=== PATIENT | male | born 1970 | race Caucasian/White ===

== ENCOUNTER 2017-11-22 08:28 | Emergency (ER) | payer OTHER ==
[~2017-11-22] VITALS: Ht 182.9 cm; Wt 240.4 kg
[2017-11-22 09:37] LABS: BASOPHILS ABSOLUTE AUTO 0.05 K/mm3 (0.00-0.23); BASOPHILS PERCENT AUTO 1 % (0-2); EOSINOPHILS ABSOLUTE AUTO 0.29 K/mm3 (0.00-0.68); EOSINOPHILS PERCENT AUTO 3 % (0-6); Hematocrit 34.5 % (37.0-53.0); Hemoglobin 10.7 g/dL (13.5-17.5); IMMATURE GRAN ABSOLUTE AUTO 0.05 K/mm3 (0.00-0.10); IMMATURE GRAN PERCENT AUTO 1 % (0-1); LYMPHOCYTES ABSOLUTE AUTO 2.86 K/mm3 (0.84-5.20); LYMPHOCYTES PERCENT AUTO 26 % (21-46); MONOCYTES PERCENT AUTO 7 % (4-13); Mean Corpuscular HGB 26.9 pg (26.0-34.0); Mean Corpuscular Volume 87 fL (80-100); Mean Platelet Volume 9.9 fL (9.1-12.4); NEUTROPHILS ABSOLUTE AUTO 6.98 K/mm3 (1.96-9.15); NEUTROPHILS PERCENT AUTO 63 % (41-73); Platelet Count 344 K/mm3 (150-400); RDW Coefficient Variation 13.5 % (11.7-14.2); RDW Standard Deviation 42.5 fL (35.1-46.3); Red Blood Cell Count 3.98 M/mm3 (4.30-5.90); White Blood Cell Count 11.03 K/mm3 (4.00-11.30)
[2017-11-22 10:04] LABS: Anion Gap 7 mmol/L (6-16); Blood Urea Nitrogen 9 mg/dL (8-24); Bun/Creatinine Ratio 14.9 (12.0-20.0); CO2, Blood 24 mmol/L (21-32); Calcium, Blood 8.3 mg/dL (8.5-10.1); Chloride, Blood 106 mmol/L (98-108); Glomerular Filtration Rate >60 (60-); Glucose, Blood 119 mg/dL (70-99); Potassium, Blood 3.8 mmol/L (3.5-5.5); Sodium, Blood 137 mmol/L (136-145); Troponin I <0.015 ng/mL (0.000-0.040)
[2017-11-22 10:19] LABS: International Normalized Ratio 1.03; Prothrombin Time Results 10.7 Sec (9.7-11.5)
[2017-11-22] MEDS ORDERED: FURO80 PO (10:34)
== END 2017-11-22 11:12 | disposition home or self-care (01) ==
LOC: ER 08:28
PROVIDERS: Emergency Medicine
DX: R06.00 Dyspnea, unspecified (principal); R60.0 Localized edema; E66.01 Morbid (severe) obesity due to excess calories; I50.9 Heart failure, unspecified; Z68.45 Body mass index [BMI] 70 or greater, adult
CPT/HCPCS: 71046; 80048; 83880; 84484; 85025; 85610; 93005; 93010; 96374; 99283; J1940

== ENCOUNTER 2020-04-09 17:07 | Emergency (ER) | payer OTHER ==
[~2020-04-09] VITALS: Ht 182.9 cm; Wt 182.3 kg
[~2020-04-09 17:07] MED LIST: FURO80 PO
[2020-04-09 18:01] LABS: BASOPHILS ABSOLUTE AUTO 0.09 K/mm3 (0.00-0.23); BASOPHILS PERCENT AUTO 1 % (0-2); EOSINOPHILS ABSOLUTE AUTO 0.14 K/mm3 (0.00-0.68); EOSINOPHILS PERCENT AUTO 2 % (0-6); Hematocrit 46.8 % (37.0-53.0); Hemoglobin 14.2 g/dL (13.5-17.5); IMMATURE GRAN ABSOLUTE AUTO 0.03 K/mm3 (0.00-0.10); IMMATURE GRAN PERCENT AUTO 0 % (0-1); LYMPHOCYTES ABSOLUTE AUTO 3.05 K/mm3 (0.84-5.20); LYMPHOCYTES PERCENT AUTO 33 % (21-46); MONOCYTES ABSOLUTE AUTO 0.75 K/mm3 (0.16-1.47); MONOCYTES PERCENT AUTO 8 % (4-13); Mean Corpuscular HGB 26.6 pg (26.0-34.0); Mean Corpuscular HGB Conc 30.3 g/dL (31.5-36.5); Mean Corpuscular Volume 88 fL (80-100); Mean Platelet Volume 10.6 fL (9.1-12.4); NEUTROPHILS ABSOLUTE AUTO 5.26 K/mm3 (1.96-9.15); NEUTROPHILS PERCENT AUTO 57 % (41-73); Platelet Count 308 K/mm3 (150-400); RDW Coefficient Variation 15.1 % (11.7-14.2); RDW Standard Deviation 47.8 fL (35.1-46.3); Red Blood Cell Count 5.34 M/mm3 (4.30-5.90); White Blood Cell Count 9.32 K/mm3 (4.00-11.30)
[2020-04-09] MEDS ORDERED: POTA10T PO (18:13)
[2020-04-09 18:20] LABS: Alanine Aminotransfer (ALT/SGP 86 U/L (12-78); Albumin, Blood 3.6 g/dL (3.4-5.0); Albumin/Globulin Ratio 0.8 (0.8-1.8); Alk Phos 62 U/L (50-136); Anion Gap 8 mmol/L (6-16); Aspartate Aminotrans (AST/SGOT 70 U/L (12-37); Bilirubin, Total 1.1 mg/dL (0.1-1.0); Blood Urea Nitrogen 24 mg/dL (8-24); Bun/Creatinine Ratio 20.2 (12.0-20.0); CO2, Blood 25 mmol/L (21-32); Calcium, Blood 8.8 mg/dL (8.5-10.1); Chloride, Blood 107 mmol/L (98-108); Creatinine, Blood 1.19 mg/dL (0.60-1.20); Globulin, Blood 4.5 g/dL (2.2-4.0); Glomerular Filtration Rate >60 (60-); Glucose, Blood 106 mg/dL (70-99); Potassium, Blood 4.3 mmol/L (3.5-5.5); Sodium, Blood 140 mmol/L (136-145); Total Protein, Blood 8.1 g/dL (6.4-8.2); Troponin I 0.026 ng/mL (0.000-0.040)
[2020-04-09] MEDS ORDERED: Furosemide40 MG PO (21:55)
== END 2020-04-09 22:08 | disposition home or self-care (01) ==
LOC: ER 17:07
PROVIDERS: Emergency Medicine
DX: I50.9 Heart failure, unspecified (principal); R06.00 Dyspnea, unspecified; E66.01 Morbid (severe) obesity due to excess calories; Z68.43 Body mass index [BMI] 50.0-59.9, adult; Z79.899 Other long term (current) drug therapy
CPT/HCPCS: 36415; 71046; 71260; 80053; 83880; 84484; 85025; 85379; 93005; 93010; 96374-59; 99285-25; J1940; Q9967

== ENCOUNTER 2020-07-12 06:49 | Day surgery (SDC) | payer OTHER ==
[~2020-07-12] VITALS: Ht 182.9 cm; Wt 162.0 kg
[~2020-07-12 06:49] MED LIST changes: +ASPI81CH PO; +ESCI20 PO; +FURO40 PO; +Furosemide40 MG PO; +INDO50 PO; +POTA10T PO; +PRINIVIL5 M1 PO; +SPIR25 PO; +TORSE20 PO; +TRAZ50 PO
[2020-07-12] MEDS ORDERED: ENTRESTO 24 MG1 EACH PO (07:50)
[2020-07-12] MEDS ORDERED: CARV3.125 PO (07:50)
== END 2020-07-12 11:45 | disposition home or self-care (01) ==
LOC: MHTC 06:49
DX: I27.22 Pulmonary hypertension due to left heart disease (principal); I11.0 Hypertensive heart disease with heart failure; I50.9 Heart failure, unspecified; I42.8 Other cardiomyopathies; E66.9 Obesity, unspecified; E78.00 Pure hypercholesterolemia, unspecified; E78.5 Hyperlipidemia, unspecified; G47.33 Obstructive sleep apnea (adult) (pediatric); E66.01 Morbid (severe) obesity due to excess calories; Z68.42 Body mass index [BMI] 45.0-49.9, adult; Z79.82 Long term (current) use of aspirin; Z79.899 Other long term (current) drug therapy
CPT/HCPCS: 85347; 93460; 99152; C1769; C1894; J1644; J2250; J3010; J7030; J7040; Q9967

== ENCOUNTER 2021-09-30 19:08 | Emergency (ER) | payer OTHER ==
[~2021-09-30] VITALS: Ht 182.9 cm; Wt 166.9 kg
[~2021-09-30 19:08] MED LIST changes: +CARV3.125 PO; +ENTRESTO 24 MG1 EACH PO
[2021-09-30 19:49] LABS: BASOPHILS ABSOLUTE AUTO 0.08 K/mm3 (0.00-0.23); BASOPHILS PERCENT AUTO 1 % (0-2); EOSINOPHILS ABSOLUTE AUTO 0.27 K/mm3 (0.00-0.68); EOSINOPHILS PERCENT AUTO 3 % (0-6); Hematocrit 40.3 % (37.0-53.0); Hemoglobin 13.2 g/dL (13.5-17.5); IMMATURE GRAN ABSOLUTE AUTO 0.02 K/mm3 (0.00-0.10); IMMATURE GRAN PERCENT AUTO 0 % (0-1); LYMPHOCYTES ABSOLUTE AUTO 3.19 K/mm3 (0.84-5.20); LYMPHOCYTES PERCENT AUTO 30 % (21-46); MONOCYTES PERCENT AUTO 7 % (4-13); Mean Corpuscular HGB 28.9 pg (26.0-34.0); Mean Corpuscular HGB Conc 32.8 g/dL (31.5-36.5); Mean Corpuscular Volume 88 fL (80-100); Mean Platelet Volume 10.4 fL (9.1-12.4); NEUTROPHILS ABSOLUTE AUTO 6.42 K/mm3 (1.96-9.15); NEUTROPHILS PERCENT AUTO 60 % (41-73); Platelet Count 298 K/mm3 (150-400); RDW Coefficient Variation 12.6 % (11.7-14.2); RDW Standard Deviation 40.9 fL (35.1-46.3); Red Blood Cell Count 4.57 M/mm3 (4.30-5.90); White Blood Cell Count 10.68 K/mm3 (4.00-11.30)
[2021-09-30 20:16] LABS: Alanine Aminotransfer (ALT/SGP 22 U/L (12-78); Albumin, Blood 3.5 g/dL (3.4-5.0); Albumin/Globulin Ratio 0.9 (0.8-1.8); Alk Phos 81 U/L (50-136); Anion Gap 6 mmol/L (6-16); Aspartate Aminotrans (AST/SGOT 35 U/L (12-37); Bilirubin, Total 0.3 mg/dL (0.1-1.0); Blood Urea Nitrogen 18 mg/dL (8-24); Bun/Creatinine Ratio 23.3 (12.0-20.0); CO2, Blood 29 mmol/L (21-32); Calcium, Blood 8.7 mg/dL (8.5-10.1); Chloride, Blood 105 mmol/L (98-108); Creatinine, Blood 0.77 mg/dL (0.60-1.20); Globulin, Blood 3.9 g/dL (2.2-4.0); Glomerular Filtration Rate >60 (60-); Glucose, Blood 137 mg/dL (70-99); Potassium, Blood 4.2 mmol/L (3.5-5.5); Sodium, Blood 140 mmol/L (136-145); Total Protein, Blood 7.4 g/dL (6.4-8.2); Troponin I <0.015 ng/mL (0.000-0.040)
== END 2021-09-30 21:37 | disposition home or self-care (01) ==
LOC: ER 19:08
PROVIDERS: Physician Assistant
DX: R00.1 Bradycardia, unspecified (principal); I50.9 Heart failure, unspecified; Z79.899 Other long term (current) drug therapy; Z79.82 Long term (current) use of aspirin
CPT/HCPCS: 36415; 71045; 80053; 83880; 84484; 85025; 93005; 93010; 99285-25

== ENCOUNTER 2022-04-03 19:57 | Emergency (ER) | payer OTHER ==
[~2022-04-03] VITALS: Ht 182.9 cm; Wt 168.7 kg
[2022-04-03] MEDS ORDERED: ALLO100 PO (20:19)
== END 2022-04-03 20:35 | disposition home or self-care (01) ==
LOC: ER 19:57
DX: U07.1 COVID-19 (principal); I50.9 Heart failure, unspecified; Z79.82 Long term (current) use of aspirin; Z79.899 Other long term (current) drug therapy
CPT/HCPCS: 99283

== ENCOUNTER → 2022-08-06 | Outpatient (CLI) | payer OTHER ==
[~2022-08-06] MED LIST changes: +ALLO100 PO
== END | disposition home or self-care (01) ==
LOC: LAB SHORT 15:56 → LAB 15:56
DX: T14.8XXA Other injury of unspecified body region, initial encounter (principal)
CPT/HCPCS: 87070; 87205

== ENCOUNTER 2022-08-07 02:37 | Day surgery (SDC) | payer OTHER | END 2022-08-07 23:07 | disposition home or self-care (01) | LOC: WOUND 02:37 | DX: L97.222 Non-pressure chronic ulcer of left calf with fat layer exposed (principal); L97.221 Non-pressure chronic ulcer of left calf limited to breakdown of skin; E66.9 Obesity, unspecified; J45.909 Unspecified asthma, uncomplicated; I11.0 Hypertensive heart disease with heart failure; I50.9 Heart failure, unspecified; Z89.512 Acquired absence of left leg below knee; Z68.42 Body mass index [BMI] 45.0-49.9, adult | CPT/HCPCS: G0463 ==

== ENCOUNTER 2022-08-14 01:50 | Day surgery (SDC) | payer OTHER | END 2022-08-14 23:12 | disposition home or self-care (01) | LOC: WOUND 01:50 | DX: L97.222 Non-pressure chronic ulcer of left calf with fat layer exposed (principal); L97.221 Non-pressure chronic ulcer of left calf limited to breakdown of skin; Z89.512 Acquired absence of left leg below knee; E66.9 Obesity, unspecified | CPT/HCPCS: A9270 ==

== ENCOUNTER 2022-08-21 03:08 | Day surgery (SDC) | payer OTHER | END 2022-08-21 23:21 | disposition home or self-care (01) | LOC: WOUND | DX: L97.222 Non-pressure chronic ulcer of left calf with fat layer exposed (principal); E66.9 Obesity, unspecified; Z89.512 Acquired absence of left leg below knee; Z68.42 Body mass index [BMI] 45.0-49.9, adult | CPT/HCPCS: A9270 ==

== ENCOUNTER 2022-08-28 04:19 | Day surgery (SDC) | payer OTHER | END 2022-08-28 23:17 | disposition home or self-care (01) | LOC: WOUND 04:19 | DX: L97.826 Non-pressure chronic ulcer of other part of left lower leg with bone involvement without evidence of necrosis (principal); E66.9 Obesity, unspecified; L03.116 Cellulitis of left lower limb; T87.81 Dehiscence of amputation stump; Y83.5 Amputation of limb(s) as the cause of abnormal reaction of the patient, or of later complication, without mention of misadventure at the time of the procedure; Z68.42 Body mass index [BMI] 45.0-49.9, adult; Z89.512 Acquired absence of left leg below knee | CPT/HCPCS: A9270; G0463 ==

== ENCOUNTER 2022-09-04 08:00 | Day surgery (SDC) | payer OTHER | END 2022-09-04 23:59 | disposition home or self-care (01) | LOC: WOUND 08:00 | DX: T81.32XA Disruption of internal operation (surgical) wound, not elsewhere classified, initial encounter (principal); L97.222 Non-pressure chronic ulcer of left calf with fat layer exposed; Z89.512 Acquired absence of left leg below knee; L97.221 Non-pressure chronic ulcer of left calf limited to breakdown of skin; L03.116 Cellulitis of left lower limb; E66.9 Obesity, unspecified | CPT/HCPCS: A9270; G0463 ==

== ENCOUNTER 2022-09-11 03:23 | Day surgery (SDC) | payer OTHER | END 2022-09-11 22:42 | disposition home or self-care (01) | LOC: WOUND 03:23 | DX: L97.222 Non-pressure chronic ulcer of left calf with fat layer exposed (principal); L97.221 Non-pressure chronic ulcer of left calf limited to breakdown of skin; L03.116 Cellulitis of left lower limb; E66.9 Obesity, unspecified; Z89.512 Acquired absence of left leg below knee; Z68.42 Body mass index [BMI] 45.0-49.9, adult | CPT/HCPCS: A9270; G0463 ==

== ENCOUNTER 2022-09-18 00:40 | Day surgery (SDC) | payer OTHER | END 2022-09-18 22:57 | disposition home or self-care (01) | LOC: WOUND 00:40 | DX: T87.81 Dehiscence of amputation stump (principal); T87.44 Infection of amputation stump, left lower extremity; Y84.8 Other medical procedures as the cause of abnormal reaction of the patient, or of later complication, without mention of misadventure at the time of the procedure; Z89.512 Acquired absence of left leg below knee; E66.9 Obesity, unspecified | CPT/HCPCS: 87070; 87075; 87076; 87205; A9270; G0463 ==

== ENCOUNTER 2022-09-18 14:27 | Emergency (ER) | payer OTHER ==
[~2022-09-18] VITALS: Ht 182.9 cm; Wt 158.8 kg
[2022-09-18 15:17] LABS: BASOPHILS ABSOLUTE AUTO 0.04 K/mm3 (0.00-0.23); BASOPHILS PERCENT AUTO 0 % (0-2); EOSINOPHILS ABSOLUTE AUTO 0.14 K/mm3 (0.00-0.68); EOSINOPHILS PERCENT AUTO 1 % (0-6); Hematocrit 38.2 % (37.0-53.0); Hemoglobin 12.1 g/dL (13.5-17.5); IMMATURE GRAN ABSOLUTE AUTO 0.02 K/mm3 (0.00-0.10); IMMATURE GRAN PERCENT AUTO 0 % (0-1); LYMPHOCYTES ABSOLUTE AUTO 2.01 K/mm3 (0.84-5.20); LYMPHOCYTES PERCENT AUTO 21 % (21-46); MONOCYTES ABSOLUTE AUTO 0.81 K/mm3 (0.16-1.47); MONOCYTES PERCENT AUTO 8 % (4-13); Mean Corpuscular HGB 26.1 pg (26.0-34.0); Mean Corpuscular HGB Conc 31.7 g/dL (31.5-36.5); Mean Corpuscular Volume 83 fL (80-100); Mean Platelet Volume 10.3 fL (9.1-12.4); NEUTROPHILS ABSOLUTE AUTO 6.74 K/mm3 (1.96-9.15); NEUTROPHILS PERCENT AUTO 69 % (41-73); Platelet Count 383 K/mm3 (150-400); RDW Coefficient Variation 13.2 % (11.7-14.2); RDW Standard Deviation 39.8 fL (35.1-46.3); Red Blood Cell Count 4.63 M/mm3 (4.30-5.90); White Blood Cell Count 9.76 K/mm3 (4.00-11.30)
[2022-09-18 15:36] LABS: C-REACTIVE PROTEIN, EXT RANGE 5.56 mg/dL (0.000-0.300)
[2022-09-18 15:38] LABS: Albumin, Blood 3.3 g/dL (3.4-5.0); Albumin/Globulin Ratio 0.7 (0.8-1.8); Bilirubin, Total 0.1 mg/dL (0.1-1.0); Bun/Creatinine Ratio 19.3 (12.0-20.0); Calcium, Blood 9.1 mg/dL (8.5-10.1); Creatinine, Blood 0.83 mg/dL (0.60-1.20); Globulin, Blood 4.7 g/dL (2.2-4.0); Potassium, Blood 3.7 mmol/L (3.5-5.5)
== END 2022-09-18 18:05 | disposition home or self-care (01) ==
LOC: ER 14:27
PROVIDERS: Physician Assistant
DX: T87.44 Infection of amputation stump, left lower extremity (principal); I50.9 Heart failure, unspecified; Y83.5 Amputation of limb(s) as the cause of abnormal reaction of the patient, or of later complication, without mention of misadventure at the time of the procedure; Z79.899 Other long term (current) drug therapy; Z79.82 Long term (current) use of aspirin
CPT/HCPCS: 36415; 73560-LT; 80053; 85025; 86140; J0696

== ENCOUNTER 2022-09-19 11:20 | Day surgery (SDC) | payer OTHER | END 2022-09-19 14:40 | disposition home or self-care (01) | LOC: ATC 11:20 | DX: T87.44 Infection of amputation stump, left lower extremity (principal); L08.9 Local infection of the skin and subcutaneous tissue, unspecified; Z89.512 Acquired absence of left leg below knee | CPT/HCPCS: 96374; J0696 ==

== ENCOUNTER 2022-09-20 03:33 | Day surgery (SDC) | payer OTHER ==
--- NOTE | 2022-09-20 15:39 | NUR ---
ATTEMPTED A POWERGLIDE INSERTION WITH 20 G 10 CM TO SILVANO WHICH WAS UNSUCCESSFUL. [address] POWERGLIDE MADE TODAY. PT REPORTS HE WILL DRINK WATER AND RETURN TOMORROW FOR CONTINUED ANTIBIOTICS.
== END 2022-09-20 15:21 | disposition home or self-care (01) ==
LOC: ATC 03:33
DX: T87.44 Infection of amputation stump, left lower extremity (principal); L08.9 Local infection of the skin and subcutaneous tissue, unspecified; I10 Essential (primary) hypertension
CPT/HCPCS: 96374; C1751; J0696

== ENCOUNTER 2022-09-21 02:24 | Day surgery (SDC) | payer OTHER ==
--- NOTE | 2022-09-27 07:40 | NUR ---
LATE EMAR ENTRY. [employer] DID NOT SAVE ADMINISTRATION DATA FOR PATIENT ROCEPHIN ON 09/21/22. IV PUSH ROCEPHIN ADMINISTERED 09/21/22 @ 1440.
== END 2022-09-21 14:43 | disposition home or self-care (01) ==
LOC: ATC 02:24
DX: L08.9 Local infection of the skin and subcutaneous tissue, unspecified (principal); I50.9 Heart failure, unspecified; Z79.899 Other long term (current) drug therapy; Z79.82 Long term (current) use of aspirin
CPT/HCPCS: 96374; C1751; J0696

== ENCOUNTER 2022-09-25 01:41 | Day surgery (SDC) | payer OTHER ==
[2022-09-25] MEDS ORDERED: CEFTRIAXON1 GM/50 M1 IV (17:40)
== END 2022-09-25 14:35 | disposition home or self-care (01) ==
LOC: ATC 01:41
DX: T87.44 Infection of amputation stump, left lower extremity (principal); Z89.512 Acquired absence of left leg below knee; Y83.8 Other surgical procedures as the cause of abnormal reaction of the patient, or of later complication, without mention of misadventure at the time of the procedure
CPT/HCPCS: 96374; J0696

== ENCOUNTER 2022-09-25 02:18 | Day surgery (SDC) | payer OTHER ==
[2022-09-25] MEDS ORDERED: CEFTRIAXON1 GM/50 M1 IV (17:40)
== END 2022-09-25 14:35 | disposition home or self-care (01) ==
LOC: WOUND 02:18
DX: T87.81 Dehiscence of amputation stump (principal); Y83.8 Other surgical procedures as the cause of abnormal reaction of the patient, or of later complication, without mention of misadventure at the time of the procedure; L97.222 Non-pressure chronic ulcer of left calf with fat layer exposed; Z89.512 Acquired absence of left leg below knee; L97.221 Non-pressure chronic ulcer of left calf limited to breakdown of skin; L03.116 Cellulitis of left lower limb; E66.9 Obesity, unspecified
CPT/HCPCS: A9270

== ENCOUNTER 2022-09-26 06:02 | Day surgery (SDC) | payer OTHER ==
[~2022-09-26 06:02] MED LIST changes: +CEFTRIAXON1 GM/50 M1 IV
== END 2022-09-26 14:38 | disposition home or self-care (01) ==
LOC: ATC 06:02
DX: L08.9 Local infection of the skin and subcutaneous tissue, unspecified (principal); Z89.512 Acquired absence of left leg below knee; I50.9 Heart failure, unspecified
CPT/HCPCS: 96374; J0696

== ENCOUNTER 2022-09-27 01:32 | Day surgery (SDC) | payer OTHER | END 2022-09-27 15:29 | disposition home or self-care (01) | LOC: ATC 01:32 | DX: T87.44 Infection of amputation stump, left lower extremity (principal); Y83.8 Other surgical procedures as the cause of abnormal reaction of the patient, or of later complication, without mention of misadventure at the time of the procedure; Z89.512 Acquired absence of left leg below knee; I50.9 Heart failure, unspecified | CPT/HCPCS: 96374; J0696 ==

== ENCOUNTER 2022-09-28 00:07 | Day surgery (SDC) | payer OTHER ==
[2022-09-29] MEDS ORDERED: ALLO100 PO (16:12)
[2022-09-29] MEDS ORDERED: ASPI81CH PO (16:14)
[2022-09-29] MEDS ORDERED: ESCI20 PO (16:15)
[2022-09-29] MEDS ORDERED: ENTRESTO 24 MG1 EAC2 PO (16:16)
[2022-09-29] MEDS ORDERED: TORS10 PO (16:17)
[2022-09-29] MEDS ORDERED: TRAZ100 PO (16:18)
== END 2022-09-28 14:34 | disposition home or self-care (01) ==
LOC: ATC 00:07
DX: L08.9 Local infection of the skin and subcutaneous tissue, unspecified (principal); T87.89 Other complications of amputation stump; Z99.3 Dependence on wheelchair; I50.9 Heart failure, unspecified
CPT/HCPCS: 96374; J0696

== ENCOUNTER 2022-09-29 00:43 | Day surgery (SDC) | payer OTHER ==
--- NOTE | 2022-09-29 11:20 | NUR ---
PT C/O PAIN IN UPPER L THIGH. PT STS HE WILL GO TO ER TO HAVE EVALUATED.
[2022-09-29] MEDS ORDERED: ALLO100 PO (16:12)
[2022-09-29] MEDS ORDERED: ASPI81CH PO (16:14)
[2022-09-29] MEDS ORDERED: ESCI20 PO (16:15)
[2022-09-29] MEDS ORDERED: ENTRESTO 24 MG1 EAC2 PO (16:16)
[2022-09-29] MEDS ORDERED: TORS10 PO (16:17)
[2022-09-29] MEDS ORDERED: TRAZ100 PO (16:18)
== END 2022-09-29 11:15 | disposition home or self-care (01) ==
LOC: ATC 00:43
DX: L08.9 Local infection of the skin and subcutaneous tissue, unspecified (principal); Z89.519 Acquired absence of unspecified leg below knee
CPT/HCPCS: J0696

== ENCOUNTER 2022-09-29 11:24 | Inpatient (IN) | payer OTHER ==
[~2022-09-29] VITALS: Ht 182.9 cm; Wt 165.5 kg
[2022-09-29 12:55] LABS: BASOPHILS ABSOLUTE AUTO 0.05 K/mm3 (0.00-0.23); BASOPHILS PERCENT AUTO 1 % (0-2); EOSINOPHILS ABSOLUTE AUTO 0.15 K/mm3 (0.00-0.68); EOSINOPHILS PERCENT AUTO 2 % (0-6); Hematocrit 38.5 % (37.0-53.0); Hemoglobin 12.1 g/dL (13.5-17.5); IMMATURE GRAN ABSOLUTE AUTO 0.03 K/mm3 (0.00-0.10); IMMATURE GRAN PERCENT AUTO 0 % (0-1); LYMPHOCYTES ABSOLUTE AUTO 2.02 K/mm3 (0.84-5.20); LYMPHOCYTES PERCENT AUTO 21 % (21-46); MONOCYTES ABSOLUTE AUTO 0.74 K/mm3 (0.16-1.47); MONOCYTES PERCENT AUTO 8 % (4-13); Mean Corpuscular HGB 25.5 pg (26.0-34.0); Mean Corpuscular HGB Conc 31.4 g/dL (31.5-36.5); Mean Corpuscular Volume 81 fL (80-100); Mean Platelet Volume 9.9 fL (9.1-12.4); NEUTROPHILS ABSOLUTE AUTO 6.67 K/mm3 (1.96-9.15); NEUTROPHILS PERCENT AUTO 69 % (41-73); Platelet Count 369 K/mm3 (150-400); RDW Coefficient Variation 13.7 % (11.7-14.2); RDW Standard Deviation 40.2 fL (35.1-46.3); Red Blood Cell Count 4.75 M/mm3 (4.30-5.90); White Blood Cell Count 9.66 K/mm3 (4.00-11.30)
[2022-09-29 13:17] LABS: Albumin, Blood 3.3 g/dL (3.4-5.0); Albumin/Globulin Ratio 0.6 (0.8-1.8); Bilirubin, Total 0.3 mg/dL (0.1-1.0); Bun/Creatinine Ratio 22.3 (12.0-20.0); C-REACTIVE PROTEIN, EXT RANGE 6.43 mg/dL (0.000-0.300); Calcium, Blood 9.2 mg/dL (8.5-10.1); Creatinine, Blood 0.72 mg/dL (0.60-1.20); Globulin, Blood 5.1 g/dL (2.2-4.0); Potassium, Blood 3.6 mmol/L (3.5-5.5); Total Protein, Blood 8.4 g/dL (6.4-8.2)
[2022-09-29] MEDS ORDERED: ALLO100 PO (16:12)
[2022-09-29] MEDS ORDERED: ASPI81CH PO (16:14)
[2022-09-29] MEDS ORDERED: ESCI20 PO (16:15)
[2022-09-29] MEDS ORDERED: ENTRESTO 24 MG1 EAC2 PO (16:16)
[2022-09-29] MEDS ORDERED: TORS10 PO (16:17)
[2022-09-29] MEDS ORDERED: TRAZ100 PO (16:18)
[2022-09-29 17:48] LABS: Influenza A, PCR NEGATIVE (NEGATIVE); Influenza B, PCR NEGATIVE (NEGATIVE); Resp Syncytial Virus, PCR NEGATIVE (NEGATIVE); SARS-Cov-2 (COVID-19) PCR, MMC NEGATIVE (NEGATIVE)
--- NOTE | 2022-09-29 22:55 | NUR ---
NEW ADMIT FROM ED. A&O X4. VSS. PLEASANT AND COOPERATIVE WITH STAFF. 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 DENIES PAIN. RECEIVING SCHEDULED VANCOMYCIN AND CEFEPIME IV. USES URINAL AT NIGHT. WHEEL CHAIR BASELINE AT HOME.
[2022-09-30 06:52] LABS: BASOPHILS ABSOLUTE AUTO 0.04 K/mm3 (0.00-0.23); BASOPHILS PERCENT AUTO 1 % (0-2); EOSINOPHILS ABSOLUTE AUTO 0.21 K/mm3 (0.00-0.68); EOSINOPHILS PERCENT AUTO 3 % (0-6); Hematocrit 34.4 % (37.0-53.0); Hemoglobin 10.6 g/dL (13.5-17.5); IMMATURE GRAN ABSOLUTE AUTO 0.02 K/mm3 (0.00-0.10); IMMATURE GRAN PERCENT AUTO 0 % (0-1); LYMPHOCYTES ABSOLUTE AUTO 1.68 K/mm3 (0.84-5.20); LYMPHOCYTES PERCENT AUTO 24 % (21-46); MONOCYTES ABSOLUTE AUTO 0.67 K/mm3 (0.16-1.47); MONOCYTES PERCENT AUTO 10 % (4-13); Mean Corpuscular HGB 25.5 pg (26.0-34.0); Mean Corpuscular HGB Conc 30.8 g/dL (31.5-36.5); Mean Corpuscular Volume 83 fL (80-100); Mean Platelet Volume 10.1 fL (9.1-12.4); NEUTROPHILS ABSOLUTE AUTO 4.27 K/mm3 (1.96-9.15); NEUTROPHILS PERCENT AUTO 62 % (41-73); Platelet Count 305 K/mm3 (150-400); RDW Coefficient Variation 13.8 % (11.7-14.2); RDW Standard Deviation 41.3 fL (35.1-46.3); Red Blood Cell Count 4.15 M/mm3 (4.30-5.90); White Blood Cell Count 6.89 K/mm3 (4.00-11.30)
[2022-09-30 07:14] LABS: Albumin, Blood 2.6 g/dL (3.4-5.0); Albumin/Globulin Ratio 0.6 (0.8-1.8); Bilirubin, Total 0.3 mg/dL (0.1-1.0); Bun/Creatinine Ratio 16.3 (12.0-20.0); Calcium, Blood 8.6 mg/dL (8.5-10.1); Creatinine, Blood 0.74 mg/dL (0.60-1.20); Globulin, Blood 4.3 g/dL (2.2-4.0); Potassium, Blood 3.4 mmol/L (3.5-5.5); Total Protein, Blood 6.9 g/dL (6.4-8.2)
--- NOTE | 2022-09-30 15:13 | NUR ---
SHIFT SUMMARY PT AWAKE AT START OF SHIFT. SITTING UPRIGHT IN BED WITH VISITORS AT BS. PT IS W/C BOUND AT BASELINE. DR MANUEL IN EARLY TO SEE PT AND ASSESS L BKA. DRSG REMOVED BY DR MANUEL AND PICTURES TAKEN OF INFECTION SITES. NEW ORDERS PLACED. PT TO BE NPO AT IN FOR SX IN AM. PT TO HAVE ABOVE THE KNEE AMPUTATION TO REMOVE INFECTION. DRSG REPLACED. PT USING URINAL IN BED. PT LATER REMOVED NEW DRSG; ADDITIONAL DRSG PLACED X2. PT REQUESTED W/C AT BS IN ORDER TO TX AND GO INTO [facility]. RECEIVING IV ABX'S PER EMAR. DR BURNS IN TO SEE PT THIS AFTERNOON. NEW ORDERS PLACED. PT DENIED FURTHER NEEDS AT THIS TIME. CALL LT IN REACH.
[2022-09-30 18:11] LABS: Vancomycin, Trough 23.3 ug/mL (5.0-10.0)
--- NOTE | 2022-10-01 05:38 | NUR ---
SHIFT SUMMARY PT A&O X 4- PT NPO OF MIDNIGHT FOR AKA SCHEDULED IN AM- SURGEON CALLED AND VERIFIED ORDER FOR NPO AT MIDNIGHT WAS IN AND LET THIS RN KNOW THAT THE PLAN IS FOR 11AM PROCEDURE UNLESS UNFORSEEN EVENTS HAPPEN- PT SAT UP TO SIDE OF BED AND USED URINAL- PT DENIED PAIN IN LEFT UPPER LEG- PT REPORTED REDUCED REDNESS AND IS REPORTS HE IS READY TO GET PROCEDURE BECAUSE THE INFECTION HAS BEEN OUT OF CONTROL- FIRST CHG BATH DONE- POWERGLIDE L AC FLUSHES WITH NO BLOOD RETURN-CALL LIGHT WITHIN REACH
[2022-10-01 06:23] LABS: BASOPHILS ABSOLUTE AUTO 0.05 K/mm3 (0.00-0.23); BASOPHILS PERCENT AUTO 1 % (0-2); EOSINOPHILS ABSOLUTE AUTO 0.26 K/mm3 (0.00-0.68); EOSINOPHILS PERCENT AUTO 4 % (0-6); Hematocrit 34.6 % (37.0-53.0); Hemoglobin 10.7 g/dL (13.5-17.5); IMMATURE GRAN ABSOLUTE AUTO 0.02 K/mm3 (0.00-0.10); IMMATURE GRAN PERCENT AUTO 0 % (0-1); LYMPHOCYTES PERCENT AUTO 28 % (21-46); MONOCYTES ABSOLUTE AUTO 0.68 K/mm3 (0.16-1.47); MONOCYTES PERCENT AUTO 10 % (4-13); Mean Corpuscular HGB 25.5 pg (26.0-34.0); Mean Corpuscular HGB Conc 30.9 g/dL (31.5-36.5); Mean Corpuscular Volume 82 fL (80-100); Mean Platelet Volume 10.5 fL (9.1-12.4); NEUTROPHILS ABSOLUTE AUTO 4.17 K/mm3 (1.96-9.15); NEUTROPHILS PERCENT AUTO 58 % (41-73); Platelet Count 320 K/mm3 (150-400); RDW Coefficient Variation 13.7 % (11.7-14.2); White Blood Cell Count 7.18 K/mm3 (4.00-11.30)
[2022-10-01 06:46] LABS: Calcium, Blood 8.8 mg/dL (8.5-10.1); Creatinine, Blood 0.83 mg/dL (0.60-1.20); Potassium, Blood 3.4 mmol/L (3.5-5.5)
--- NOTE | 2022-10-01 12:35 | NUR ---
PT TO SDS BY BED RECENTLY WITH ASSIST. History, Chart, Medications and Allergies reviewed before start of procedure.Lungs clear T/O to Auscultation. Patient confirms NPO status and agrees with scheduled surgery. Pre-Op teaching done. Pt verbalizes understanding.
--- NOTE | 2022-10-01 13:18 | NUR ---
TOOK PATIENTS BELONGINGS TO ROOM 209, BELONGINGS TO INCLUDE ONE WHEELCHAIR WITH TWO PT ID STICKERS ATTACHED, ONE WALKER WITH ONE ID STICKER ATTACHED, ONE ORANGE BLANKET, ONE REUSABLE GROCERY BAG WITH PERSONAL BELONGINGS IN IT AND IV PUMP.
--- NOTE | 2022-10-01 13:26 | NUR ---
TRANSFER TO DAY SURGERY PT AxOx4. PLEASANT AND COOPERATIVE WITH CARE. PT NPO THIS AM. REQUESTED AM MEDS HELD UNTIL AFTER SURGERY. MEDS SENT WITH OR STAFF UPON TRANSPORT. PT TRANSFERRED TO DAY SURGERY AT APPROX 1220. REPORT GIVEN TO KEENAN GLOVER ON SURGICAL FLOOR PT WILL MOVE TO ROOM 229 FOR RECOVERY. PT DENIED PAIN THIS AM. VITALS REVIEWED. , KRYSTAL IN ROOM DURING TRANSPORT, MADE AWARE OF POST OP RELOCATION. PT WAS SAFELY TRANSPORTED VIA BED BY OR STAFF.
--- NOTE | 2022-10-01 17:30 | NUR ---
ARRIVAL TO ROOM 209 ARRIVED TO THE FLOOR FROM PACU ON HIS BED, REPORTS HIGH LEVEL OF PAIN AND APPEARED TO BE VERY PAINFUL PHYSICALLY, ELEVATED BP 177 SYSTOLIC, GRUNTING, AND IRREGULAR BREATHING. O2 SATS OVER 94%, PO [place] GIVEN ORDERED. SURGEON CONTACTED FOR BREAKTHROUGH IV NARCOTICS. WILL ADMINISTER AND EVALUATE FOR PAIN AND RESPIRATORY STATUS. SURGICAL SITE SLIGHLTY ELEVATED, DRESSING C/D/I, MODERATE SWELLING NOTED T/O LLE. ICE WATER GIVEN AND ABLE TO TOLERATE, PT REQUESTING ZOFRAN BEFORE EATING TONIGHT.
--- NOTE | 2022-10-01 19:40 | NUR ---
SHIFT SUMMARY PT ARRIVED TO THE FLOOR AROUND 1700 (SEE ARRIVAL TO ROOM 209 NOTE), PT PAIN BETTER MANAGED WITH DILAUDED, MUSCLE RELAXER ORDERED FOR MUSCLE SPASMS, PT REPORTED THAT HE USED TO TAKE FLEXERIL FOR RLS WHICH HELPED. NO ACUTE EVENTS THIS SHIFT, CALL LIGHT IN REACH, REPORT GIVEN TO FRANCIE RN.
--- NOTE | 2022-10-02 04:19 | NUR ---
POD1 LEFT AKA. DRESSINGS C/D/I, SENSATION AND CIRCULATION APPEAR TO BE INTACT. STUMP SOCK IN PLACE. VSS. PAIN HAS BEEN DIFFICULT TO CONTROL T/O THE NIGHT. MEDICATED WITH NORCO AND DILAUDID REGULARLY. CALLED THE HOSPITALIST AND OBTAINED ORDER TO INCREASE NORCO 5 TO A 10MG Q4, AND VALIUM FOR MUSCLE SPASMS THE FLEXARIL IS NOT DECREASING MUSCLE SPASMS ENOUGH FOR THE PT. PT SLEPT ON AND OFF T/O THE NIGHT. TOLLERATING PO INTAKE W/O N/V. PASSING GAS REGULARLY. VOIDING W/O DIFFICULTY. POWERGLIDE INFILTRATED AND WAS REMOVEED, PCU CALLED FOR A NEW PLACEMENT. PLAN FOR PT TO CONTINUE ABX THERAPY AFTER LINE PLACEMENT AND WORK WITH PT. THE PATIENT IS CURRENTLY RESTING, IN NO DISTRESS, CALL LIGHT IN REACH.
[2022-10-02 09:20] LABS: BASOPHILS ABSOLUTE AUTO 0.04 K/mm3 (0.00-0.23); BASOPHILS PERCENT AUTO 0 % (0-2); EOSINOPHILS ABSOLUTE AUTO 0.17 K/mm3 (0.00-0.68); EOSINOPHILS PERCENT AUTO 2 % (0-6); Hematocrit 33.8 % (37.0-53.0); Hemoglobin 10.6 g/dL (13.5-17.5); IMMATURE GRAN ABSOLUTE AUTO 0.04 K/mm3 (0.00-0.10); IMMATURE GRAN PERCENT AUTO 0 % (0-1); LYMPHOCYTES ABSOLUTE AUTO 1.37 K/mm3 (0.84-5.20); LYMPHOCYTES PERCENT AUTO 12 % (21-46); MONOCYTES ABSOLUTE AUTO 0.94 K/mm3 (0.16-1.47); MONOCYTES PERCENT AUTO 8 % (4-13); Mean Corpuscular HGB 25.9 pg (26.0-34.0); Mean Corpuscular HGB Conc 31.4 g/dL (31.5-36.5); Mean Corpuscular Volume 82 fL (80-100); NEUTROPHILS ABSOLUTE AUTO 8.57 K/mm3 (1.96-9.15); NEUTROPHILS PERCENT AUTO 77 % (41-73); Platelet Count 319 K/mm3 (150-400); RDW Standard Deviation 41.7 fL (35.1-46.3); White Blood Cell Count 11.13 K/mm3 (4.00-11.30)
[2022-10-02 09:47] LABS: Albumin, Blood 2.8 g/dL (3.4-5.0); Anion Gap 5 mmol/L (6-16); Blood Urea Nitrogen 10 mg/dL (8-24); Bun/Creatinine Ratio 14.3 (12.0-20.0); CO2, Blood 27 mmol/L (21-32); Calcium, Blood 8.2 mg/dL (8.5-10.1); Chloride, Blood 106 mmol/L (98-108); Glomerular Filtration Rate 110 (60-); Glucose, Blood 151 mg/dL (70-99); Phosphorus, Blood 2.9 mg/dL (2.5-4.9); Potassium, Blood 3.8 mmol/L (3.5-5.5); Sodium, Blood 138 mmol/L (136-145)
[2022-10-02 09:48] LABS: Vancomycin, Trough 18.8 ug/mL (5.0-10.0)
--- NOTE | 2022-10-02 18:59 | NUR ---
SHIFT SUMMARY POD1 L AKA, A/O X4, VSS, TOLERATING PO, PAIN MANAGEMENT SIGNIFICANTLY IMPROVED T/O THE SHIFT WITH A DECREASE IN THE AMOUNT OF IV NARCOTICS NEEDED, DID WELL WITH PHYSICAL THERAPY TODAY BEING ABLE TO STAND AT THE BEDSIDE WITH WALKER/GB. NO BM WITH SHIFT, VOIDING WELL. NO ACUTE EVENTS THIS SHIFT, CALL LIGHT IN REACH, REPORT GIVEN TO FRANCIE RN.
--- NOTE | 2022-10-03 04:30 | NUR ---
POD2 FOR LEFT AKA. CIRCULATION AND SENSATION APPEARS TO REMAIN INTACT, DRESSING IS C/D/I. VSS. MEDICATED FOR PAIN WITH SCHEDULED AND PRN MEDICATIONS WITH GOOD RESULTS. PT SLEPT ON AND OFF T/O THE NIGHT. NO ACUTE EVENTS NOTED. PT VOIDING AND PASSING GAS W/O DIFFICULTY, TOLLERATING PO INTAKE. PLAN FOR PT TO CONTINUE ABX THERAPY, AND CONTINUE TO WORK PT/OT UNTIL D/C HOME. THE PATIENT IS CURRENTLY RESTING IN BED, IN NO DISTRESS, CALL LIGHT IN REACH
[2022-10-03 05:37] LABS: BASOPHILS ABSOLUTE AUTO 0.05 K/mm3 (0.00-0.23); BASOPHILS PERCENT AUTO 1 % (0-2); EOSINOPHILS ABSOLUTE AUTO 0.42 K/mm3 (0.00-0.68); EOSINOPHILS PERCENT AUTO 5 % (0-6); Hematocrit 29.6 % (37.0-53.0); Hemoglobin 9.3 g/dL (13.5-17.5); IMMATURE GRAN ABSOLUTE AUTO 0.02 K/mm3 (0.00-0.10); IMMATURE GRAN PERCENT AUTO 0 % (0-1); LYMPHOCYTES ABSOLUTE AUTO 1.97 K/mm3 (0.84-5.20); LYMPHOCYTES PERCENT AUTO 22 % (21-46); MONOCYTES ABSOLUTE AUTO 0.82 K/mm3 (0.16-1.47); MONOCYTES PERCENT AUTO 9 % (4-13); Mean Corpuscular HGB 25.8 pg (26.0-34.0); Mean Corpuscular HGB Conc 31.4 g/dL (31.5-36.5); Mean Corpuscular Volume 82 fL (80-100); NEUTROPHILS ABSOLUTE AUTO 5.76 K/mm3 (1.96-9.15); NEUTROPHILS PERCENT AUTO 64 % (41-73); Platelet Count 261 K/mm3 (150-400); RDW Coefficient Variation 13.8 % (11.7-14.2); RDW Standard Deviation 41.5 fL (35.1-46.3); White Blood Cell Count 9.04 K/mm3 (4.00-11.30)
[2022-10-03 05:57] LABS: Albumin, Blood 2.4 g/dL (3.4-5.0); Anion Gap 5 mmol/L (6-16); Blood Urea Nitrogen 12 mg/dL (8-24); Bun/Creatinine Ratio 14.1 (12.0-20.0); CO2, Blood 29 mmol/L (21-32); Calcium, Blood 8.1 mg/dL (8.5-10.1); Chloride, Blood 105 mmol/L (98-108); Creatinine, Blood 0.85 mg/dL (0.60-1.20); Glomerular Filtration Rate 104 (60-); Glucose, Blood 121 mg/dL (70-99); Magnesium, Blood 1.8 mg/dL (1.6-2.4); Phosphorus, Blood 2.8 mg/dL (2.5-4.9); Potassium, Blood 3.5 mmol/L (3.5-5.5); Sodium, Blood 139 mmol/L (136-145)
[2022-10-03 12:22] LABS: Vancomycin, Trough 18.5 ug/mL (5.0-10.0)
--- NOTE | 2022-10-03 18:23 | NUR ---
SHIFT SUMMARY PATIENT ALERT AND ORIENTED WHEN AWAKE. FREQUENT NAPS. SBA UP TO WC. L AKA WITH DRESSING C/D/I, CHANGED TODAY. ABX CHANGED FROM IV TO ORALS. PAIN CONTROLLED WITH PO MEDS AND TORADOL. PLAN IS TO DISCHARGE HOME TOMORROW 10/03/22. TOLERATING REGULAR DIET AND LIQUIDS. VOIDING WELL.
--- NOTE | 2022-10-04 05:36 | NUR ---
SHIFT SUMMARY: A&0X4. PODx3 NOW FROM L AKA. STUMP SOCK AND DRESSING REMAIN IN PLACE. AREA STILL REMAINS SWOLLEN. PAIN WELL MANAGED T/O THE NIGHT. TOLERATING PO FLUIDS AND FOOD. EATING, DRINKING, VOIDING. PT USING URINAL AT BEDSIDE DURING THE NIGHT. NO ACUTE CHANGES DURING THIS SHIFT. PT RESTING AT THIS TIME, CALL LIGHT IN REACH. THIS RN WILL GIVE REPORT TO DAY RN.
[2022-10-04] MEDS ORDERED: Acetaminophen650 M1 PO (09:25)
[2022-10-04] MEDS ORDERED: DOXY100 PO (09:26)
[2022-10-04] MEDS ORDERED: CLIN300 PO (09:26)
[2022-10-04] MEDS ORDERED: GABA300 PO (09:26)
[2022-10-04] MEDS ORDERED: Robaxin750 MG PO (09:27)
[2022-10-04] MEDS ORDERED: OXYC10TA19 PO (09:27)
--- NOTE | 2022-10-04 12:00 | NUR ---
DISCHARGE SUMMARY PT A&OX4, VSS/RA, BECKY PO, VOIDING, PAIN MANAGED, AMB/TRANSFERS SELF TO CHAIR/BED/WC, DRESSING CHANGED, POWERGLIDE DC'D. DC INS PROVIDED. PT AND SISTER REP UNDERSTANDING DC INS. LEFT FLOOR VIA HIS OWN WC, WITH ALL PERSONAL POSSESSIONS, INCLUDING DC PACKET AND EXTRA DRESSINGS, TO GO HOME WITH .
== END 2022-10-04 10:30 | disposition home or self-care (01) | DRG 854 ==
LOC: ER 11:24 → ERHOLD 11:25 → MEDS 11:25 → SURS 11:25 → MEDS 18:49 → SURS 10-01 12:23
PROVIDERS: Family Medicine; Orthopaedic Surgery; Physician Assistant; ADMIT Internal Medicine
PROC: 3E03329 Introduction of Other Anti-infective into Peripheral Vein, Percutaneous Approach (ICD-10-PCS; 2022-09-29)
PROC: 0Y6D0Z3 Detachment at Left Upper Leg, Low, Open Approach (ICD-10-PCS; principal; 2022-10-01 13:30)
DX: A41.9 Sepsis, unspecified organism (principal); I50.22 Chronic systolic (congestive) heart failure; T87.44 Infection of amputation stump, left lower extremity; L03.116 Cellulitis of left lower limb; Z68.42 Body mass index [BMI] 45.0-49.9, adult; M86.8X7 Other osteomyelitis, ankle and foot; Z20.822 Contact with and (suspected) exposure to COVID-19; E11.69 Type 2 diabetes mellitus with other specified complication; J45.909 Unspecified asthma, uncomplicated; F32.A Depression, unspecified; M10.9 Gout, unspecified; E66.9 Obesity, unspecified; G47.33 Obstructive sleep apnea (adult) (pediatric); I11.0 Hypertensive heart disease with heart failure; G47.00 Insomnia, unspecified; Z98.84 Bariatric surgery status; Z98.890 Other specified postprocedural states; Z79.2 Long term (current) use of antibiotics; Z79.82 Long term (current) use of aspirin; Z79.899 Other long term (current) drug therapy; Y83.5 Amputation of limb(s) as the cause of abnormal reaction of the patient, or of later complication, without mention of misadventure at the time of the procedure
CPT/HCPCS: 0241U; 36415; 73701; 80048; 80053; 80069; 80202; 82947; 83735; 85025; 86140; 87040; 88307; 90686; 93005; 93010; 94760; 96374; 96375; 97110; 97162; 97165; 97530; 99284-25; A9270; C1751; J0171; J0692; J1100; J1170; J1644; J1885; J2405; J2704; J3010; J3360; J3370; J7050; J7120; Q9967

== ENCOUNTER 2022-11-08 12:54 | Emergency (ER) | payer OTHER ==
[~2022-11-08] VITALS: Ht 182.9 cm; Wt 154.2 kg
[~2022-11-08 12:54] MED LIST changes: +Acetaminophen650 M1 PO; +CLIN300 PO; +DOXY100 PO; +ENTRESTO 24 MG1 EAC2 PO; +GABA300 PO; +OXYC10TA19 PO; +Robaxin750 MG PO; +TORS10 PO; +TRAZ100 PO
[2022-11-08 14:41] LABS: BASOPHILS ABSOLUTE AUTO 0.05 K/mm3 (0.00-0.23); BASOPHILS PERCENT AUTO 1 % (0-2); EOSINOPHILS ABSOLUTE AUTO 0.11 K/mm3 (0.00-0.68); EOSINOPHILS PERCENT AUTO 1 % (0-6); Hematocrit 37.9 % (37.0-53.0); Hemoglobin 12.1 g/dL (13.5-17.5); IMMATURE GRAN ABSOLUTE AUTO 0.02 K/mm3 (0.00-0.10); IMMATURE GRAN PERCENT AUTO 0 % (0-1); LYMPHOCYTES ABSOLUTE AUTO 1.97 K/mm3 (0.84-5.20); LYMPHOCYTES PERCENT AUTO 20 % (21-46); MONOCYTES ABSOLUTE AUTO 0.68 K/mm3 (0.16-1.47); MONOCYTES PERCENT AUTO 7 % (4-13); Mean Corpuscular HGB 26.3 pg (26.0-34.0); Mean Corpuscular HGB Conc 31.9 g/dL (31.5-36.5); Mean Corpuscular Volume 82 fL (80-100); Mean Platelet Volume 9.8 fL (9.1-12.4); NEUTROPHILS ABSOLUTE AUTO 7.08 K/mm3 (1.96-9.15); NEUTROPHILS PERCENT AUTO 71 % (41-73); Platelet Count 331 K/mm3 (150-400); RDW Coefficient Variation 16.1 % (11.7-14.2); RDW Standard Deviation 48.1 fL (35.1-46.3); White Blood Cell Count 9.91 K/mm3 (4.00-11.30)
[2022-11-08 15:03] LABS: Albumin, Blood 3.7 g/dL (3.4-5.0); Albumin/Globulin Ratio 0.8 (0.8-1.8); Bilirubin, Total 0.1 mg/dL (0.1-1.0); Bun/Creatinine Ratio 21.7 (12.0-20.0); Calcium, Blood 8.8 mg/dL (8.5-10.1); Creatinine, Blood 0.88 mg/dL (0.60-1.20); Globulin, Blood 4.6 g/dL (2.2-4.0); Potassium, Blood 3.3 mmol/L (3.5-5.5); Total Protein, Blood 8.3 g/dL (6.4-8.2)
== END 2022-11-08 17:39 | disposition home or self-care (01) ==
LOC: ER 12:54
PROVIDERS: Physician Assistant
DX: R07.9 Chest pain, unspecified (principal); I50.9 Heart failure, unspecified; Z79.899 Other long term (current) drug therapy; Z79.82 Long term (current) use of aspirin
CPT/HCPCS: 36415; 71046; 80053; 83880; 84484; 85025; J2405

== ENCOUNTER 2025-01-15 09:51 | Emergency (ER) | payer OTHER ==
[~2025-01-15] VITALS: Ht 182.9 cm; Wt 167.8 kg
[2025-01-15 10:25] LABS: BASOPHILS ABSOLUTE AUTO 0.05 K/mm3 (0.00-0.23); BASOPHILS PERCENT AUTO 1 % (0-2); EOSINOPHILS ABSOLUTE AUTO 0.18 K/mm3 (0.00-0.68); EOSINOPHILS PERCENT AUTO 2 % (0-6); Hematocrit 42.7 % (37.0-53.0); Hemoglobin 13.8 g/dL (13.5-17.5); IMMATURE GRAN ABSOLUTE AUTO 0.02 K/mm3 (0.00-0.10); IMMATURE GRAN PERCENT AUTO 0 % (0-1); LYMPHOCYTES PERCENT AUTO 19 % (21-46); MONOCYTES ABSOLUTE AUTO 0.65 K/mm3 (0.16-1.47); MONOCYTES PERCENT AUTO 8 % (4-13); Mean Corpuscular HGB Conc 32.3 g/dL (31.5-36.5); Mean Corpuscular Volume 83 fL (80-100); Mean Platelet Volume 10.2 fL (9.1-12.4); NEUTROPHILS ABSOLUTE AUTO 6.14 K/mm3 (1.96-9.15); NEUTROPHILS PERCENT AUTO 71 % (41-73); Platelet Count 293 K/mm3 (150-400); RDW Standard Deviation 42.5 fL (35.1-46.3); Red Blood Cell Count 5.12 M/mm3 (4.30-5.90); White Blood Cell Count 8.64 K/mm3 (4.00-11.30)
[2025-01-15 10:41] LABS: Albumin, Blood 3.8 g/dL (3.4-5.0); Albumin/Globulin Ratio 0.8 (0.8-1.8); Bilirubin, Total 0.4 mg/dL (0.1-1.0); Calcium, Blood 9.2 mg/dL (8.5-10.1); Creatinine, Blood 0.62 mg/dL (0.60-1.20); Globulin, Blood 4.5 g/dL (2.2-4.0); Potassium, Blood 3.5 mmol/L (3.5-5.5); Total Protein, Blood 8.3 g/dL (6.4-8.2)
[2025-01-15] MEDS ORDERED: Acetaminophen 500 MG Tab PO ONE (10:45)
[2025-01-15] MEDS ORDERED: Ibuprofen 600 MG Tab PO ONE (10:45)
[2025-01-15 11:14] VITALS: BP 112/56
[2025-01-15] MEDS ORDERED: ACET500 PO (13:37)
[2025-01-15] MEDS ORDERED: IBUP600 PO (13:37)
== END 2025-01-15 14:02 | disposition home or self-care (01) ==
LOC: ER 09:51
PROVIDERS: Emergency Medicine
DX: R07.89 Other chest pain (principal); I11.0 Hypertensive heart disease with heart failure; I50.20 Unspecified systolic (congestive) heart failure; G47.33 Obstructive sleep apnea (adult) (pediatric); J45.909 Unspecified asthma, uncomplicated; Z79.82 Long term (current) use of aspirin; Z79.899 Other long term (current) drug therapy
CPT/HCPCS: 71045; 80053; 83690; 83880; 84484; 85025; 93005; 93010; 99285-25; A9270

== ENCOUNTER 2025-03-01 05:42 | Day surgery (SDC) | payer OTHER ==
[~2025-03-01 05:42] MED LIST changes: +ACET500 PO; +IBUP600 PO; +Sod Ferric Gluc Complx/Sucrose 125 MG in NS 100 ML IV SCH
[2025-03-01 13:58] VITALS: BP 123/67
[2025-03-01] MEDS ORDERED: BEEF LIVER PO (14:05)
== END 2025-03-01 15:13 | disposition home or self-care (01) ==
LOC: ATC 05:42
DX: E61.1 Iron deficiency (principal); I11.0 Hypertensive heart disease with heart failure; I50.9 Heart failure, unspecified; J45.909 Unspecified asthma, uncomplicated; G47.33 Obstructive sleep apnea (adult) (pediatric); Z79.82 Long term (current) use of aspirin; Z79.899 Other long term (current) drug therapy
CPT/HCPCS: 96365; J2916